=== PATIENT | male | born 1965 | race African-American/Black ===

== ENCOUNTER 2019-11-24 14:09 | Emergency (ER) | payer MEDICAID ==
[~2019-11-24] VITALS: Ht 177.8 cm; Wt 69.0 kg
[2019-11-24 14:33] VITALS: BP 130/88
== END 2019-11-24 15:31 | disposition home or self-care (01) ==
LOC: ER 14:27
DX: G40.909 Epilepsy, unspecified, not intractable, without status epilepticus (principal)
CPT/HCPCS: 93005; 99283

== ENCOUNTER 2021-04-03 06:40 | Emergency (ER) | payer MEDICAID ==
[~2021-04-03] VITALS: Ht 180.3 cm; Wt 68.0 kg
[2021-04-03 06:47] VITALS: BP 132/82
[2021-04-03 09:30] LABS: BASOPHILS % 0.5 % (0.0-2.0); EOSINOPHILS % 8.6 % (0.0-5.0); HEMATOCRIT. 37.8 % (42.0-52.0); HEMOGLOBIN. 12.4 g/dL (14.0-18.0); LYMPHOCYTES % 35.7 % (20.0-50.0); MEAN CORPUSCULAR HEMOGLOBIN 28.9 pg (28.0-32.0); MEAN CORPUSCULAR VOLUME 88.3 fL (80.0-94.0); MEAN PLATELET VOLUME 7.9 fl (7.4-10.4); MONOCYTES % 9.5 % (2.0-8.0); NEUTROPHILS % 45.7 % (40.0-76.0); PLATELET 222 x1000/uL (130-400); RED BLOOD CELL COUNT 4.28 mill/uL (4.7-6.1); RED CELL DISTRIBUTION WIDTH 13.8 % (11.6-14.6)
[2021-04-03 09:44] LABS: CHLORIDE 108 mEq/L (98-107)
[2021-04-03] MEDS ORDERED: CEFTRIAXONE SODIUM 500 MG/VIAL IM ONE (11:15)
[2021-04-03] MEDS ORDERED: DOXY100T2 MT (12:15)
== END 2021-04-03 13:06 | disposition home or self-care (01) ==
LOC: ER 06:52
DX: N45.2 Orchitis (principal); Z86.59 Personal history of other mental and behavioral disorders; Z98.890 Other specified postprocedural states
CPT/HCPCS: 36415; 76870; 80053; 85025; 93976; 96372; 99284; J0696

== ENCOUNTER 2021-06-10 06:02 | Emergency (ER) | payer OTHER, MEDICAID ==
[~2021-06-10] VITALS: Ht 177.8 cm; Wt 73.0 kg
[~2021-06-10 06:02] MED LIST: DOXY100T2 MT
[2021-06-10] MEDS ORDERED: SODIUM CHLORIDE 0.9% 1,000 ML IV ONE (06:30)
[2021-06-10] MEDS ORDERED: LORAZEPAM 2MG/ML CPJ IV ONE (06:30)
[2021-06-10 06:53] LABS: BASOPHILS % 0.7 % (0.0-2.0); EOSINOPHILS % 2.2 % (0.0-5.0); HEMATOCRIT. 44.6 % (42.0-52.0); HEMOGLOBIN. 14.8 g/dL (14.0-18.0); LYMPHOCYTES % 44.6 % (20.0-50.0); MEAN CORPUSCULAR HEMOGLOBIN 29.6 pg (28.0-32.0); MEAN CORPUSCULAR VOLUME 89.2 fL (80.0-94.0); MEAN PLATELET VOLUME 8.9 fl (7.4-10.4); MONOCYTES % 7.9 % (2.0-8.0); NEUTROPHILS % 44.6 % (40.0-76.0); PLATELET 220 x1000/uL (130-400); RED CELL DISTRIBUTION WIDTH 13.9 % (11.6-14.6)
[2021-06-10 07:03] LABS: CHLORIDE 109 mEq/L (98-107)
[2021-06-10 07:08] LABS: ETHANOL BLOOD < 10 mg/dL
[2021-06-10 09:09] LABS: CLARITY URINE CLEAR (CLEAR); COLOR URINE YELLOW (YELLOW); KETONES URINE TRACE (NEGATIVE); LEUKOCYTE ESTERASE URINE TRACE (NEGATIVE); NITRITE URINE NEGATIVE (NEGATIVE); OCCULT BLOOD URINE NEGATIVE (NEGATIVE); PROTEIN URINE 1+ (NEGATIVE); SPECIFIC GRAVITY URINE 1.034 (1.005-1.030)
[2021-06-10 09:38] LABS: *AMPHETAMINES SCREEN URINE PRESUMTIVE POSITIVE (NEGATIVE); *BARBITURATES SCREEN URINE NEGATIVE (NEGATIVE); *BENZODIAZEPINES SCREEN URINE NEGATIVE (NEGATIVE); *COCAINE SCREEN URINE PRESUMTIVE POSITIVE (NEGATIVE); CANNABINOID URINE SCREEN NEGATIVE (NEGATIVE); PHENCYCLIDINE URINE SCREEN PRESUMTIVE POSITIVE (NEGATIVE)
[2021-06-10 09:39] LABS: METHADONE URINE SCREEN NEGATIVE (NEGATIVE); OPIATES URINE SCREEN NEGATIVE (NEGATIVE)
[2021-06-10 10:00] VITALS: BP 138/65
== END 2021-06-10 11:22 | disposition home or self-care (01) ==
LOC: ER 06:12
DX: M79.18 Myalgia, other site (principal); I10 Essential (primary) hypertension; F17.290 Nicotine dependence, other tobacco product, uncomplicated
CPT/HCPCS: 36415; 80053; 80305; 80320; 81003; 85025; 96361; 96374; 99283; J2060; J7030; G0480

== ENCOUNTER 2022-09-27 14:31 | Emergency (ER) | payer MEDICAID, OTHER ==
[~2022-09-27] VITALS: Ht 177.8 cm; Wt 77.0 kg
[2022-09-27 14:38] VITALS: BP 134/90; PULSE 78; RESP 18; TEMP 98.7; O2SAT 96
== END 2022-09-27 18:27 | disposition left against medical advice (07) ==
LOC: ER 14:31
DX: Z53.21 Procedure and treatment not carried out due to patient leaving prior to being seen by health care provider (principal)
CPT/HCPCS: 76870; 93976; 99281

== ENCOUNTER 2023-07-18 15:23 | Emergency (ER) | payer MEDICAID ==
[~2023-07-18] VITALS: Ht 167.6 cm; Wt 73.0 kg
[~2023-07-18 15:23] MED LIST changes: +ASPI-1497 PO; +BICT1TAB PO; -DOXY100T2 MT; +HYDR-4009 PO; +KEPP500 MT; +OMEP20TA15 MT; +QUET300T2 MT
[2023-07-18 15:27] VITALS: O2SAT 98
[2023-07-18] MEDS: SODIUM CHLORIDE 0.9% 1,000 ML IV ONE (15:52)
[2023-07-18 16:00] LABS: BASOPHILS % 1.3 % (0.0-2.0); EOSINOPHILS % 6.9 % (0.0-5.0); HEMATOCRIT. 41.5 % (42.0-52.0); HEMOGLOBIN. 13.7 g/dL (14.0-18.0); LYMPHOCYTES % 37.6 % (20.0-50.0); MEAN CORPUSCULAR HEMOGLOBIN 28.8 pg (28.0-32.0); MEAN CORPUSCULAR HGB CONC 32.9 g/dL (31.0-37.0); MEAN CORPUSCULAR VOLUME 87.4 fL (80.0-94.0); MEAN PLATELET VOLUME 8.4 fl (7.4-10.4); MONOCYTES % 9.4 % (2.0-8.0); NEUTROPHILS % 44.8 % (40.0-76.0); PLATELET 255 x1000/uL (130-400); RED BLOOD CELL COUNT 4.75 mill/uL (4.7-6.1); RED CELL DISTRIBUTION WIDTH 13.3 % (11.6-14.6); WHITE BLOOD COUNT 4.7 x1000/uL (4.5-11.0)
[2023-07-18 16:01] LABS: CHLORIDE 105 mEq/L (98-107); POTASSIUM 3.8 mEq/L (3.5-5.1); SODIUM 139 mEq/L (136-145)
[2023-07-18 16:02] LABS: CARBON DIOXIDE 26 mEq/L (21-32)
[2023-07-18 16:03] LABS: CALCIUM 10.2 mg/dL (8.7-10.4)
[2023-07-18 16:07] LABS: CREATININE 1.1 mg/dL (0.6-1.3); GLUCOSE 99 mg/dL (70-105)
[2023-07-18 16:08] LABS: AMMONIA < 17 uMol/L (<32); ETHANOL BLOOD < 10 mg/dL (<10); UREA NITROGEN BLOOD 17 mg/dL (9-23)
[2023-07-18 16:09] LABS: ALANINE AMINOTRANSFERASE 20 IU/L (10-49); ALBUMIN 4.4 g/dL (3.2-4.8); ASPARTATE AMINOTRANSFERASE 26 IU/L (<34)
[2023-07-18 16:10] LABS: BILIRUBIN TOTAL 0.2 mg/dL (0.1-1.0); PROTEIN TOTAL 7.7 g/dL (6.0-8.3)
[2023-07-18 16:20] LABS: TROPONIN I HIGH SENSITIVITY < 4 ng/L (3.0-53)
[2023-07-18 17:58] LABS: TROPONIN I HIGH SENSITIVITY < 4 ng/L (3.0-53)
[2023-07-18 18:23] LABS: CLARITY URINE CLEAR (CLEAR); COLOR URINE YELLOW (YELLOW); GLUCOSE URINE NEGATIVE (NEGATIVE); KETONES URINE NEGATIVE (NEGATIVE); LEUKOCYTE ESTERASE URINE NEGATIVE (NEGATIVE); NITRITE URINE NEGATIVE (NEGATIVE); OCCULT BLOOD URINE NEGATIVE (NEGATIVE); PH URINE 5.5 (4.5-8.0); PROTEIN URINE NEGATIVE (NEGATIVE); SPECIFIC GRAVITY URINE 1.013 (1.005-1.030)
[2023-07-18 18:33] VITALS: BP 130/76; PULSE 85; RESP 10; TEMP 98.7
[2023-07-18 18:34] LABS: *AMPHETAMINES SCREEN URINE PRESUMPTIVE POSITIVE (NEGATIVE)
[2023-07-18 18:35] LABS: *BARBITURATES SCREEN URINE NEGATIVE (NEGATIVE); *BENZODIAZEPINES SCREEN URINE NEGATIVE (NEGATIVE); *COCAINE SCREEN URINE NEGATIVE (NEGATIVE); CANNABINOID URINE SCREEN NEGATIVE (NEGATIVE); ECSTASY MDMA SCREEN URINE NEGATIVE (NEGATIVE); METHADONE URINE SCREEN NEGATIVE (NEGATIVE); OPIATES URINE SCREEN NEGATIVE (NEGATIVE); PHENCYCLIDINE URINE SCREEN PRESUMTIVE POSITIVE (NEGATIVE)
== END 2023-07-18 19:26 | disposition home or self-care (01) ==
LOC: ER 15:23
DX: F15.10 Other stimulant abuse, uncomplicated (principal); F16.10 Hallucinogen abuse, uncomplicated; J45.909 Unspecified asthma, uncomplicated; F10.20 Alcohol dependence, uncomplicated; Y90.0 Blood alcohol level of less than 20 mg/100 ml
CPT/HCPCS: 80053; 80305; 81003; 80320; 82140; 83690; 85025; 84484; 36415; 71045; 93005; 96360; 99285; J7030; G0480

== ENCOUNTER 2024-02-07 20:28 | Emergency (ER) | payer MEDICAID ==
[~2024-02-07] VITALS: Ht 172.7 cm; Wt 73.0 kg
[2024-02-07 20:46] VITALS: BP 126/87; PULSE 100; TEMP 99.9; O2SAT 100
[2024-02-07] MEDS: ACETAMINOPHEN 325MG TABLET PO STA (20:52)
[2024-02-07] MEDS: IBUPROFEN 600MG TABLET PO STA (20:52)
[2024-02-07 22:10] LABS: BASOPHILS % 0.2 % (0.0-2.0); EOSINOPHILS % 0.1 % (0.0-5.0); HEMATOCRIT. 44.1 % (42.0-52.0); HEMOGLOBIN. 14.4 g/dL (14.0-18.0); LYMPHOCYTES % 14.7 % (20.0-50.0); MEAN CORPUSCULAR HEMOGLOBIN 29.8 pg (28.0-32.0); MEAN CORPUSCULAR HGB CONC 32.8 g/dL (31.0-37.0); MEAN PLATELET VOLUME 8.8 fl (7.4-10.4); MONOCYTES % 13.8 % (2.0-8.0); NEUTROPHILS % 71.2 % (40.0-76.0); PLATELET 238 x1000/uL (130-400); RED BLOOD CELL COUNT 4.85 mill/uL (4.7-6.1); RED CELL DISTRIBUTION WIDTH 13.9 % (11.6-14.6); WHITE BLOOD COUNT 5.1 x1000/uL (4.5-11.0)
[2024-02-07 22:13] LABS: CHLORIDE 101 mEq/L (98-107); POTASSIUM 3.7 mEq/L (3.5-5.1); SODIUM 135 mEq/L (136-145)
[2024-02-07 22:14] LABS: CALCIUM 9.2 mg/dL (8.7-10.4); CARBON DIOXIDE 27 mEq/L (21-32)
[2024-02-07 22:19] LABS: GLUCOSE 103 mg/dL (70-105); UREA NITROGEN BLOOD 13 mg/dL (9-23)
[2024-02-07 23:26] VITALS: RESP 18
== END 2024-02-07 23:25 | disposition home or self-care (01) ==
LOC: ER 20:28
DX: R19.7 Diarrhea, unspecified (principal); R05.9 Cough, unspecified; R50.9 Fever, unspecified; Z79.899 Other long term (current) drug therapy
CPT/HCPCS: 36415; 71045; 80048; 85025; 99284

== ENCOUNTER 2024-02-09 08:11 | Emergency (ER) | payer MEDICAID ==
[~2024-02-09] VITALS: Ht 172.7 cm; Wt 70.0 kg
[2024-02-09 08:13] VITALS: BP 123/86; PULSE 100; RESP 16; TEMP 98.6; O2SAT 98
[2024-02-09] MEDS ORDERED: LEVETIRACETAM 500MG TABLET PO ONE (09:15)
[2024-02-09 09:33] LABS: CHLORIDE 101 mEq/L (98-107); POTASSIUM 3.9 mEq/L (3.5-5.1); SODIUM 135 mEq/L (136-145)
[2024-02-09 09:34] LABS: CARBON DIOXIDE 28 mEq/L (21-32)
[2024-02-09] MEDS: IBUPROFEN 600MG TABLET PO ONE (09:34)
[2024-02-09] MEDS: ONDANSETRON 4MG ODT PO ONE (09:34)
[2024-02-09] MEDS: LEVETIRACETAM 500MG TABLET PO NR (09:34)
[2024-02-09 09:39] LABS: GLUCOSE 104 mg/dL (70-105); UREA NITROGEN BLOOD 14 mg/dL (9-23)
[2024-02-09 09:48] LABS: HEMATOCRIT. 44.9 % (42.0-52.0); MEAN CORPUSCULAR HEMOGLOBIN 29.8 pg (28.0-32.0); MEAN CORPUSCULAR HGB CONC 33.4 g/dL (31.0-37.0); MEAN CORPUSCULAR VOLUME 89.2 fL (80.0-94.0); PLATELET 200 x1000/uL (130-400); RED BLOOD CELL COUNT 5.04 mill/uL (4.7-6.1); RED CELL DISTRIBUTION WIDTH 14.1 % (11.6-14.6); WHITE BLOOD COUNT 4.7 x1000/uL (4.5-11.0)
[2024-02-09 10:06] LABS: DIFFERENTIAL COMMENT 1
[2024-02-09] MEDS ORDERED: KEPP500 MT (10:57)
[2024-02-09] MEDS ORDERED: BICT1TAB PO (10:57)
[2024-02-09] MEDS ORDERED: NAPR-1486 MT (10:57)
[2024-02-09] MEDS ORDERED: ONDA-239 PO (11:31)
[2024-02-09 11:33] LABS: PLATELET ESTIMATE NORMAL
== END 2024-02-09 11:32 | disposition home or self-care (01) ==
LOC: ER 08:19
DX: M54.30 Sciatica, unspecified side (principal); R10.13 Epigastric pain; G40.909 Epilepsy, unspecified, not intractable, without status epilepticus; Z79.899 Other long term (current) drug therapy; Z20.822 Contact with and (suspected) exposure to COVID-19
CPT/HCPCS: 99284; 87426; 80048; 85025; 87804 ×2; 36415; 72100; Q0162

== ENCOUNTER 2024-04-24 15:03 | Emergency (ER) | payer MEDICAID ==
[~2024-04-24] VITALS: Ht 172.7 cm; Wt 85.0 kg
[~2024-04-24 15:03] MED LIST changes: +AMLO5TAB88 PO; +FURO40TA5 PO; +MONT-46 PO; +NAPR-1486 MT; +ONDA-239 PO; +TAMS-11 PO
[2024-04-24 15:05] VITALS: TEMP 37.1; O2SAT 100
[2024-04-24 16:56] LABS: BASOPHILS % 0.3 % (0.0-2.0); EOSINOPHILS % 2.4 % (0.0-5.0); HEMATOCRIT. 38.6 % (42.0-52.0); HEMOGLOBIN. 12.4 g/dL (14.0-18.0); LYMPHOCYTES % 12.2 % (20.0-50.0); MEAN CORPUSCULAR HEMOGLOBIN 28.4 pg (28.0-32.0); MEAN CORPUSCULAR HGB CONC 32.2 g/dL (31.0-37.0); MEAN CORPUSCULAR VOLUME 88.2 fL (80.0-94.0); MEAN PLATELET VOLUME 8.4 fl (7.4-10.4); MONOCYTES % 5.9 % (2.0-8.0); NEUTROPHILS % 79.2 % (40.0-76.0); PLATELET 359 x1000/uL (130-400); RED BLOOD CELL COUNT 4.38 mill/uL (4.7-6.1); RED CELL DISTRIBUTION WIDTH 15.5 % (11.6-14.6); WHITE BLOOD COUNT 8.1 x1000/uL (4.5-11.0)
[2024-04-24 17:03] LABS: CHLORIDE 111 mEq/L (98-107); POTASSIUM 3.6 mEq/L (3.5-5.1); SODIUM 145 mEq/L (136-145)
[2024-04-24 17:04] LABS: CARBON DIOXIDE 30 mEq/L (21-32)
[2024-04-24] MEDS: HYDROCODONE/ACETAMINOPHEN 5/325MG TABLET PO STA (17:06)
[2024-04-24] MEDS: ONDANSETRON 4MG ODT PO STA (17:07)
[2024-04-24 17:09] LABS: GLUCOSE 115 mg/dL (70-105); UREA NITROGEN BLOOD 14 mg/dL (9-23)
[2024-04-24] MEDS: TETANUS, DIPHTHERIA, PERTUSSIS VAC/PF 0.5ML (>10YR OLD) IM ONE (17:46)
[2024-04-24] MEDS: BACITRACIN ZINC OINT UDPKT TOP ONE (17:47)
[2024-04-24] MEDS: LIDOCAINE HCL/EPINEPHRINE 1%-EPI 1:100,000 20ML VIAL INFIL ONE (17:47)
[2024-04-24 19:14] VITALS: BP 144/72; PULSE 80; RESP 18
[2024-04-24] MEDS: KETOROLAC 30MG/ML VIAL IM NR (19:14)
[2024-04-24] MEDS ORDERED: CEPH500T MT (20:59)
[2024-04-24] MEDS ORDERED: SULF1TAB48 MT (20:59)
[2024-04-24] MEDS ORDERED: LIDO700A15 TP (21:19)
[2024-04-24] MEDS ORDERED: NAPR-1176 MT (21:19)
== END 2024-04-24 23:46 | disposition home or self-care (01) ==
LOC: ER 15:03
DX: S22.42XA Multiple fractures of ribs, left side, initial encounter for closed fracture (principal); S01.01XA Laceration without foreign body of scalp, initial encounter; M25.512 Pain in left shoulder; Z79.899 Other long term (current) drug therapy; Z86.59 Personal history of other mental and behavioral disorders; Y04.0XXA Assault by unarmed brawl or fight, initial encounter; Y93.89 Activity, other specified; Y92.89 Other specified places as the place of occurrence of the external cause; Y99.8 Other external cause status
CPT/HCPCS: 80048; 85025; 36415; 71101; 73030; 70450; 74176; 90715; 12002; 90471; 96372; 99285; Q0162; J1885; J2004; Z7610 ×2

== ENCOUNTER 2024-07-01 20:13 | Emergency (ER) | payer MEDICAID ==
[~2024-07-01] VITALS: Ht 172.7 cm; Wt 76.0 kg
[~2024-07-01 20:13] MED LIST changes: +LIDO700A15 TP; +NAPR-1176 MT; -TAMS-11 PO; +TAMS-54 PO
[2024-07-01 20:23] VITALS: BP 142/98; PULSE 108; RESP 14; TEMP 37.3; O2SAT 97
== END 2024-07-01 20:38 | disposition left against medical advice (07) ==
LOC: ER 20:13
DX: S09.90XA Unspecified injury of head, initial encounter (principal); Z53.21 Procedure and treatment not carried out due to patient leaving prior to being seen by health care provider; Y04.0XXA Assault by unarmed brawl or fight, initial encounter; Y93.9 Activity, unspecified; Y92.89 Other specified places as the place of occurrence of the external cause; Y99.8 Other external cause status